=== PATIENT | male | born 1970 | race Caucasian/White ===

== ENCOUNTER → 2019-09-30 | Outpatient (CLI) | payer BC ==
--- NOTE | 2019-09-30 09:49 | Diagnostic Imaging Report ---
TECHNIQUE: Magnetic resonance imaging of the LEFT SHOULDER was performed WITHOUT injected contrast. COMPARISON: None available. HISTORY: Left shoulder pain FINDINGS: MUSCLES AND TENDONS: Rotator Cuff: Tendons: Mild tendinosis of the supraspinatus tendon with intermediate signal. Muscles: No focal muscle atrophy. Biceps Tendon: The long head of the biceps tendon is intact and within the intertubercular groove. GLENOHUMERAL JOINT: Glenoid Labrum: Fraying of the superior labrum. Articular Cartilage: No focal defect. AC JOINT AND ACROMION: Mild hypertrophic degenerative changes of the acromioclavicular joint. Mild subacromial spurring BONE: No acute fracture. SOFT TISSUES: Subacromial subdeltoid bursal fluid/bursitis. Mild infiltration of the rotator cuff interval and thickening of the axillary recess. IMPRESSION: Supraspinatus tendinosis without tear. Mild subacromial subdeltoid bursal fluid/bursitis. Findings of possible adhesive capsulitis. Signed by: Dr. Bi Langley M.D. on 09/30/2019 9:46 AM
== END ==
LOC: MRI 07:39
PROVIDERS: ATTEND Family Medicine
DX: M25.512 Pain in left shoulder (principal)

== ENCOUNTER 2019-10-18 15:57 | Outpatient (RCR) | payer BC | END 2019-10-22 | LOC: PT 15:57 | PROVIDERS: ATTEND Family Medicine | DX: M75.52 Bursitis of left shoulder (principal) ==

== ENCOUNTER → 2020-09-14 | Outpatient (CLI) | payer BC | LOC: MRI 12:46 | PROVIDERS: ATTEND Family Medicine | DX: M54.16 Radiculopathy, lumbar region (principal) | CPT/HCPCS: 72148 ==

== ENCOUNTER → 2021-02-11 | Outpatient (CLI) | payer OTHER ==
[~2021-02-11] MED LIST: COVID-19 VACC, MRNA(MODERNA)/PF 100 MCG/0.5 ML VIAL IM ONE
== END | disposition home or self-care (01) ==
LOC: VACCPMC 13:59
DX: Z23 Encounter for immunization (principal); Z20.822 Contact with and (suspected) exposure to COVID-19
CPT/HCPCS: 91301

== ENCOUNTER → 2021-03-11 | Outpatient (CLI) | payer BC, OTHER | END | disposition home or self-care (01) | LOC: VACCPMC 11:20 | DX: Z23 Encounter for immunization (principal); Z20.822 Contact with and (suspected) exposure to COVID-19 | CPT/HCPCS: 91301 ==